=== PATIENT | female | born 1980 | race Caucasian/White ===

== ENCOUNTER 2021-04-18 22:55 | Emergency (ER) | payer SELFPAY ==
[2021-04-18 23:26] VITALS: BP 128/84; PULSE 81; RESP 18; TEMP 36.9; O2SAT 97; BMI 28.2
--- NOTE | 2021-04-18 23:37 | ED_ITS ---
HPI - Dental/Oral General: Chief complaint: Dental/Oral Stated complaint: Tooth Ache Time Seen by Provider: 04/18/21 23:37 History of Present Illness: HPI Narrative: Patient comes in today for complaints of lower right rear molar pain. Patient was given a dose of Toradol in the urgent care clinic today with some improvement. Patient reports tonight the pain got worse and she had nothing at home for her discomfort. Review of Systems General: Reports: 10 or more systems reviewed and unremarkable except in HPI and below ENMT: Reports: dental pain PFSH ED PFSH: Family History Father Cancer prostate Family/Other Cancer Diabetes Brother , age 46 Heart disease Social History Smoking and tobacco status: never smoked Second hand smoke exposure: Yes Alcohol intake: current Alcohol intake frequency: few times a month Lives independently: No Household members: family Housing: House Marital status: Current occupational status: employed Current occupation: [employer] History of recent travel: No Current gender identity: Female Female Reproductive History: Date of last menstrual period: 04/18/21 Physical Exam Const: COMMON NORMALS: no acute distress and patient oriented x3 GENERAL APPEARANCE: cooperative HENMT: COMMON NORMALS: normocephalic, TM's normal bilaterally and Normal external nose present HEAD & SCALP: normal to inspection and normocephalic NOSE: Normal external nose present TYMPANIC MEMBRANE: TM's normal bilaterally MOUTH: other (Teeth fair repair, redness and erythema lower right molar) THROAT: posterior oropharynx normal Eye: GENERAL EYE: appearance normal, both eyes and all related structures Neck/C-Spine: COMMON NORMALS: full ROM Lymph: LYMPHATIC: no lymphadenopathy noted Chest: COMMONS NORMALS: normal inspection of the chest Resp: COMMON NORMALS: normal respiratory effort EFFORT & INSPECTION: Yes able to speak in complete sentences Cardio: COMMON NORMALS: regular rate and regular rhythm RATE: regular rate RHYTHM: regular rhythm GI: COMMON NORMALS: non-tender Extremity: COMMON NORMALS: normal to inspection Neuro: COMMON NORMALS: patient oriented x3 and moves all extremities Psych: COMMON NORMALS: mental status grossly normal and cooperative Skin: COMMON NORMALS: no rashes or lesions noted GENERAL SKIN EXAM: no rashes or lesions noted Course Vital Signs: Vital signs: Vital Signs Temperature 98.5 F 04/18/21 23:26 Pulse Rate 81 04/18/21 23:26 Respiratory Rate 18 04/18/21 23:26 Blood Pressure 128/84 04/18/21 23:26 Pulse Oximetry 97 04/18/21 23:26 MDM - Dental/Oral MDM Narrative: Medical decision making narrative: Patient comes in today with dental pain. On exam patient has various caries in the teeth with some repair. To the tooth of concern lower right rear molar there is noticeable redness and swelling to the gingiva. Differential diagnosis includes dental caries, odontalgia, dental abscess, floor mouth cellulitis. No sign of serious illness was noted. No symmetry was noted in the throat. Patient was going to be treated with clindamycin and will continue her antibiotic as directed. Patient was given medication for her pain and recommended to follow-up with dentist for definitive care. Discharge Plan Discharge Patient Disposition: Home Clinical Impression: Dental abscess Condition: Stable Prescriptions: New hydrocodone-acetaminophen 5-325 mg tablet 1 tab PO Q6H PRN (Reason: pain (scale score 7-10)) Qty: 6 RF: 0 No Action albuterol sulfate [Ventolin HFA] 90 mcg/actuation HFA aerosol inhaler 2 puff INHALATION Q6H PRN (Reason: Shortness Of Breath) RF: 0 norgestimate-ethinyl estradiol [Tri-Sprintec (28)] 0.18/0.215/0.25 mg-35 mcg (28) tablet 1 tab PO DAILY RF: 0 ibuprofen 800 mg tablet 800 mg PO TID PRN (Reason: Pain) RF: 0 clindamycin HCl 300 mg capsule 300 mg PO TID 7 Days Qty: 21 RF: 0 scopolamine base 1 mg over 3 days patch 3 day 1 patch TRANSDERMA Q3D PRN (Reason: nausea and vomiting) Qty: 4 RF: 0 rizatriptan 10 mg tablet,disintegrating 10 mg PO PRN RF: 0 ondansetron 4 mg tablet,disintegrating 4 mg PO Q4H PRN (Reason: Nausea) RF: 0 Sudafed 2 tab PO PRN RF: 0 Discharge Orders: Discharge ED (Routine); Ordered 04/18/21 Ordered By: Escobar Mitchell Discharge Diet: Usual diet Discharge Activity: Increase activity as tolerated Patient Instructions: Toothache (ED), Opioid Safety Activity Restrictions/Additional Instructions: Take antibiotics as directed. Drink plenty of water with medication. Follow-up with dentist for definitive care. Return to the ER for new concerns. Coding Level of Care Code ED Food Preservation Scientist for Avelina Moreno
[2021-04-18] MEDS: ketorolac 30 mg/mL INJ IM (23:56)
[2021-04-18] MEDS: HYDROcodone-acetaminophen 5-325 mg Tablet 1 TAB PO (23:56)
[2021-04-18] MEDS: clindamycin 150 mg Capsule 300 MG PO (23:56)
== END 2021-04-19 | disposition home or self-care (01) ==
PROVIDERS: Emergency Provider Nurse Practitioner Family
DX: K04.7 Periapical abscess without sinus (principal); Z77.22 Contact with and (suspected) exposure to environmental tobacco smoke (acute) (chronic)
CPT/HCPCS: 96372; 99283; J1885

== ENCOUNTER 2022-07-01 10:38 | Observation (INO) | payer OTHER, SELFPAY ==
[2022-06-28 08:42] VITALS: BMI 31.3
--- NOTE | 2022-06-28 09:10 | ANES.PREANE2 ---
Pre-Anesthetic Assessment Height/Weight: Height 1.68 m Weight 87.997 kg Preop Diagnosis: Chronic pelvic pain, urinary incontinence, abnormal uterine bleeding Operation Date: 07/01/22 07:00 Proposed Procedures p Total vaginal hysterectomy 30002, Single incision cling 60573,N93.9,N39.3(Not Applicable) - Bao Bahena MD s Sling Single Incision Sling(Not Applicable) - Bao Bahena MD Familial anesthetic complications: none Social No alcohol and No tobacco Exam alert, oriented x 3, clear to auscultation bilaterally and regular rate & rhythm Airway Mallampati: Class I Dentition: full Pulmonary Asthma Neuropsych BPPV - resolved Anesthetic Plan ASA status: 2 Anesthesia: General Risk of > 500 ml blood loss (7ml/kg in children): No Medications/Allergies Home Medications Medication Instructions Recorded Confirmed Last Taken Type ibuprofen 800 mg tablet 800 mg PO TID PRN Pain 11/05/19 06/28/22 03/26/20 History Sudafed 2 tab PO PRN 04/01/20 06/28/22 Unknown History ondansetron 4 mg disintegrating 4 mg PO Q4H PRN Nausea #20 tabs 12/22/21 06/28/22 Unknown Rx tablet rizatriptan 10 mg disintegrating 10 mg PO Q2H PRN migraine headache 12/22/21 06/28/22 Unknown Rx tablet #10 tabs triamcinolone acetonide 0.1 % 1 applic topical DAILY #30 grams 12/22/21 06/28/22 Unknown Rx topical cream albuterol sulfate 90 mcg/actuation 2 puff inhalation Q6H PRN 04/26/22 06/28/22 Unknown Rx aerosol inhaler (Ventolin HFA) Shortness Of Breath #8.5 grams Allergies Allergy/AdvReac Type Severity Reaction Status Date / Time doxycycline Allergy Intermediate vomiting Verified 06/28/22 08:37 Sulfa (Sulfonamide Allergy Intermediate itching, Verified 06/28/22 08:37 Antibiotics) vomiting ceftriaxone [From Rocephin] Allergy ALGY-Anaphy Verified 06/28/22 08:37 laxis sumatriptan [From Imitrex] Allergy ALGY-Anaphy Verified 06/28/22 08:37 laxis [facility] Anesthesia Medical History Asthma Surgical History H/O shoulder surgery bone spurs taken off left shoulder History of ear, nose, and throat (ENT) surgery deviated septum Hx of appendectomy Hx of tubal ligation Family History Father No problems noted. 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
[2022-06-28 09:37] LABS: Basophils # 0.1 10^3/uL (0.0-0.1); Basophils % 0.8 %; Eosinophils # 0.1 10^3/uL (0.0-0.8); Eosinophils % 1.9 %; Hematocrit 38.3 % (37.0-47.0); Hemoglobin 12.1 g/dL (11.5-15.3); Lymphocytes # 1.4 10^3/uL (0.8-4.8); Lymphocytes % 21.8 %; Mean Corpuscular HGB Conc 31.6 g/dL (30.0-36.0); Mean Corpuscular Hemoglobin 27.3 pg (28.0-34.0); Mean Corpuscular Volume 86.3 fl (81-99); Mean Platelet Volume 11.3 fL (7.4-10.4); Monocytes # 0.4 10^3/uL (0.2-0.9); Monocytes % 5.8 %; Neutrophils # 4.29 10^3/uL (1.8-7.7); Neutrophils % 69.4 %; Nucleated Red Blood Cells % 0 %; Platelet Count 232 10^3/cmm (130-400); Red Blood Count 4.44 10^6/uL (4.1-5.3); Red Cell Distribution Width 13.3 % (12.1-15.1); White Blood Count 6.2 10^3/uL (4.0-10.0)
[2022-06-28 09:46] LABS: OR HCG Qualitative Urine Negative (Negative)
[2022-06-28 09:57] LABS: Alanine Aminotransferase 28 U/L (0-33); Alkaline Phosphatase 73 U/L (35-105); Anion Gap 13.8 (5-19); Aspartate Amino Transferase 22 U/L (0-32); Blood Urea Nitrogen 11 mg/dL (6-20); Calcium 8.6 mg/dL (8.5-10.5); Carbon Dioxide 24 mmol/L (22-29); Chloride 104 mmol/L (98-107); Globulin 2.8 g/dL (1.3-4.6); Glomerular Filtration Rate 91.3 mL/min (90-130); Glucose 101 mg/dL (65-115); Osmolality Calculated 286 mOsm/kg (285-295); Potassium 3.8 mmol/L (3.5-5.1); Sodium 138 mmol/L (136-145); Total Bilirubin 0.3 mg/dL (0.15-1.2); Total Protein 6.8 g/dL (6.6-8.7)
[2022-07-01] VITALS (21 sets, daily range): BP systolic 91–116; BP diastolic 52–91; PULSE 38–100; RESP 12–18; TEMP 36.3–36.8; O2SAT 96–100
[2022-07-01 06:20] LABS: OR HCG Qualitative Urine Negative (Negative)
[2022-07-01] MEDS: sodium chloride 0.9% 500 ML IV (06:29)
[2022-07-01] MEDS: scopolamine 1.5 Patch 1 PATCH TRANSDERMA (06:29)
[2022-07-01] MEDS: sodium chloride 0.9% 1,000 ML 30 ML IV (07:01)
--- NOTE | 2022-07-01 07:03 | P.ANESUD_ITS ---
Pre-Anesthetic Update Pre-Anesthetic Assessment: Date of Surgery/Procedure: 07/01/22 Preop Kelly gnosis: Chronic pelvic pain, urinary incontinence, abnormal uterine bleeding Proposed Procedure: Operation Date: 07/01/22 07:00 Proposed Procedures p Total vaginal hysterectomy 51993, Single incision cling 91494,N93.9,N39.3(Not Applicable) - Bao Bahena MD s Sling Single Incision Sling(Not Applicable) - Bao Bahena MD Any changes to Pre-Anesthetic Assessment?: No Last Intake: Intake Last Liquid Date 06/30/22 Last Liquid Time 18:45 Last Solid Date 06/30/22 Last Solid Time 18:45 Vitals: Temperature 97.4 F L 07/01/22 06:09 Temperature Source Temporal Artery S can 07/01/22 06:09 Pulse Rate 84 07/01/22 06:09 Respiratory Rate 18 07/01/22 06:09 Blood Pressure 113/71 07/01/22 06:09 Blood Pressure Florina n 85 07/01/22 06:09 Pulse Oximetry 98 07/01/22 06:09 Oxygen Delivery Me thod 07/01/22 06:09 Exam: Pre-Anes Outpt Exam: alert, oriented x 3, clear to auscultation bilaterally and regular rate & rhythm Cardiac Studies: Holter Monitor 12/23/21
[2022-07-01] MEDS: levofloxacin-dextrose 5 % 500 MG/100 ML PREMIX 100 MG IV (07:07)
[2022-07-01] MEDS: vancomycin 1,000 MG in sodium chloride 0.9% 250 ML 250 MG IV (08:10)
--- NOTE | 2022-07-01 08:34 | W.PM.OPSUD ---
Surgery/Procedure H&P Update DATE OF PROCEDURE: July 01, 2022 DATE H&P PERFORMED: 06/25/22 H&P UPDATE INFORMATION: I have reviewed H&P completed within last 30 days, I have examined patient prior to procedure and No changes to prior documentation PREOP DIAGNOSIS: Chronic pelvic pain, urinary incontinence, abnormal uterine bleeding PLANNED PROCEDURE: Operation Date: 07/01/22 07:00 Proposed Procedures p Total vaginal hysterectomy 32560, Single incision cling 72677,N93.9,N39.3(Not Applicable) - Bao Bahena MD s Sling Single Incision Sling(Not Applicable) - Bao Bahena MD
[2022-07-01] MEDS: acetaminophen 1,000 MG/100 ML PIGGYBACK 400 MG IV (09:22)
--- NOTE | 2022-07-01 09:38 | SUR.OPER ---
Family Notified Of Patient's Status Via Phone.
[2022-07-01] MEDS: estrogens Conjugated Cream 30 gm 1 APPLIC VAGINAL (10:08)
--- NOTE | 2022-07-01 10:16 | P.OP_ITS ---
Operative Report Date of procedure: July 01, 2022 Pre-op diagnosis: Preop Diagnosis Chronic pelvic pain, urinary incontinence, abnormal uterine bleeding Post-op diagnosis: Same as above Post-op findings: Enlarged uterus Procedure done: Total vaginal hysterectomy. Single incision mid urethral sling. Cystoscopy Implants: Coloplast Altis sling Specimens removed/disposition: Uterus Surgeon: Bao Bahena MD Estimated blood loss (mL): 400 IV fluids (mL): 1,200 Urine output (mL): 100 Procedure: After informed consent and risks, benefits, indications and alternatives reviewed with the patient was taken to the operating room. The patient was placed in dorsal lithotomy position prepped, and draped in the usual sterile fashion. The pre-procedure timeout verifying the correct patient, procedure, site and side, could not requirements was performed and acknowledge by the OR team. A Melendez catheter was placed. A Bookwalter vaginal retractor was placed into the vagina in usual manner visualize the cervix. Cervix was grasped with a single tooth tenaculum and circumferentially infiltrated with 2% lidocaine with epinephrine. Then cervix was circumferentially incised with bovie and the bladder was dissected off the pubovesical cervical fascia anteriorly with a sponge stick and Metzenbaum scissors. The anterior peritoneal reflection was identified and the anterior cul-de-sac was entered sharply with Metzenbaum scissors. The same procedure was performed posteriorly and a posterior colpotomy was made through the posterior cul-de-sac space without difficulty and the posterior blade of the Bookwalter vaginal retractor was advanced posteriorly into the cul-de-sac. At this time, the left and right uterosacral ligaments were isolated and ligated with 0 Vicryl. The Voyant device was placed over the uterosacral ligaments on either side and was then used in a serial fashion up through the cardinal ligaments bilaterally cross-clamped, cut, and sealed with the Voyant device. Finally, the uterine arteries were cross-clamped, cut, sealed and ligated with the Voyant device. Hemostasis was assured. The broad ligaments were then serially clamped, sealed and cut with the Voyant device on both sides. Excellent hemostasis was visualized. Both cornua were clamped, sealed and cut with the Voyant device. Then the pedicles were then suture ligated with excellent hemostasis. The uterus was excised and submitted for pathologic evaluation. No other abnormalities were noted in the pelvic cavity. The peritoneum was then closed in a pursestring fashion with 0 Vicryl suture. The vaginal cuff angles were closed with [id number] #0 Vicryl suture on both sides and transfixed with the ipsilateral cardinal and uterosacral ligaments. The remainder of the vaginal cuff was closed with #0 Vicryl in a running locked fashion. At this time, instruments were removed from the vagina at hemostasis assured. The anterior vaginal mucosa beneath the midurethra was infiltrated with 0.5% Marcaine with epinephrine. A vertical midline incision was made beneath the midurethra, nearly 1.5 cm length. Careful submucosal dissection was performed bilaterally up to the interior portion of the inferior pubic ramus. The insertio n of adductor longus tendon on the patient?s pubic ramus was identified as reference land cruz. Palpated the notch along the internal edge of ischiopubic ramus where the adductor longus tendon and the inferior pubic ramus meet. The Altis single incision sling (SIS) was selected. Then the needle of the SIS inserted aiming at the location of this notch. One of the integrated self- fixating tips place onto the needle by sliding it over the end of the needle. The needle/sling assembly was inserted toward the location of identified reference notch making sure that the flat of the handle is perpendicular to the desired path. The needle was tracked along the posterior surface of the ischiopubic ramus until the midline cruz on the mesh is approximately at the midline position under the urethra. The needle was removed and the same was repeated on the contralateral side until the appropriate sling tension under the urethra was achieved ensuring that the mesh lays flat. The needle was removed and vaginal incision was closed in a running interlocking fashion with 2-0 Vicryl. Then the Melendez catheter was removed and cystoscope was inserted. The bladder was filled with sterile water. Complete evaluation of the bladder mucosa was performed noting no lacerations, dimpling, tears, bleeding of the mucosa or muscular layers. Both ureteral orifices were identified. Prompt excretion of urine from both ureteral orifices was noted. Cystoscope was withdrawn. Melendez catheter was then placed yielding clear jacki urine. A vaginal packing with Premarin cream was placed and the patient was taken out of dorsal lithotomy position and awakened from the general anesthesia. The patient tolerated the procedure well and was taken to the PACU recovery room in a stable condition. Sponge, lap, needle and instruments counts were correct x3.
--- NOTE | 2022-07-01 10:34 | SUR.PHASEI ---
1024 PT TO PACU 5 PT SLEEPS WITH ORAL AIRWAY IN PLACE , DOES NOT AWAKE TO VOICE OR TOUCH, GOOD RESP NOTED SATS 100% ON 8LMASK, ABDOMEN SOFT WITH VAGINAL PACKING D/I NO VAGINAL BLEEDING NOTED IV TO LT AC PATENT TO NS 800ML UP AT KVO RATE PER GRAVITY, BILAT SCDS ON AND WORKING, COLLAZO TO DD WITH LT CLEAR BLUE URINE NOTED TO TUBING AND BAG, PT MONITOR SR WITH NO ECTOPY, VSS ID BRACELET TO RT WRIST PT ID'D WITH 2 IDENTIFIERS, PT HAS SCOPOLAMINE PATCH TO RT EAR.
--- NOTE | 2022-07-01 10:35 | P.PCN_ITS ---
PACU note Narrative: VSS, Good respiratory effort, report to PURCHASING CONTRACTING CLERK Exam: awake
--- NOTE | 2022-07-01 10:35 | PM.PACU ---
PACU note Narrative: VSS, Good respiratory effort, report to WIND TURBINE PERFORMANCE ENGINEER Exam: awake
--- NOTE | 2022-07-01 10:39 | SUR.PHASEI ---
PT AWAKES , ORAL AIRWAY OUT PT VERBALLY DENIES PAIN AND NAUSEA, VSS DR FOUNTAIN AT BEDSIDE, GOOD RESP EFFORT NOTED WITH NO DISTRESS.
[2022-07-01] MEDS: fentaNYL 50 mcg/mL INJ 2mL IVP (10:50)
--- NOTE | 2022-07-01 10:55 | SUR.PHASEI ---
1045 PT ON RA TRIAL, PT MORE AWAKE, GRIMICING, C/O OF PRESSURE PAIN TO POLO AREA GROIN AT 8/10 SEE PAIN MED GIVEN
--- NOTE | 2022-07-01 11:01 | SUR.PHASEI ---
PT AWAKES EASILY STATES THAT PAIN IS GONE, ABDOMEN REMAINS SOFT AND NO VAGINAL BLEEDING NOTED. WILL CALL REPORT TO OB.
--- NOTE | 2022-07-01 11:09 | SUR.PHASEI ---
PT NOW OUT OF PHASE ONE, UNABLE TO GIVE REPORT AT THIS TIME TO FLOOR NURSE, WILL HOLD PT, PT HAS NO FAMILY IN WAITING AREA, ATTEMPTED TO CALL DAUGHTER JOHNNY, NO ANSWER, UNABLE TO LEAVE MESSAGE.
--- NOTE | 2022-07-01 11:38 | SUR.PHASEI ---
PT TO OB 9 PT AWAKE ALERT , MOVES SELF TO BED, HANDOFF AT BEDSIDE TO MEGHANA RN , PT ABDOMEN SOFT NO VAGINAL BLEEDING NOTED.
[2022-07-01] MEDS: HYDROcodone-acetaminophen 5-325 mg Tablet PO ×2 (12:00→18:18)
--- NOTE | 2022-07-01 13:59 | ANE.PACU2 ---
Inpatient post-anesthesia follow up: Airway intact: Yes Vital signs: Temperature 97.5 F Pulse Rate 65 Respiratory Rate 16 Blood Pressure 102/58 Pulse Oximetry 99 Oxygen Delivery Me thod Room Air Oxygen Flow Rate 8 Fraction of Inspir ed Oxygen Hydration adequate: Yes Nausea and vomiting: No Pain level: 1 Mental status: Baseline
[2022-07-01] MEDS: ketorolac 30 mg/mL INJ IVP ×2 (15:46→21:38)
[2022-07-01] MEDS: ipratropium-albuterol 3 mL Neb INHALATION ×2 (15:58→19:37)
[2022-07-01] MEDS: dextrose 5%-lactated ringers 1,000 ML 125 ML IV (16:38)
[2022-07-01] MEDS: docusate sodium 100 mg Capsule PO (18:18)
[2022-07-02] MEDS: HYDROcodone-acetaminophen 5-325 mg Tablet PO ×2 (00:03→06:09)
[2022-07-02] MEDS: dextrose 5%-lactated ringers 1,000 ML 125 ML IV (00:56)
[2022-07-02 05:00] VITALS: BP 102/66; PULSE 88; RESP 16; O2SAT 97
[2022-07-02 05:44] LABS: Hematocrit 27.6 % (37.0-47.0); Hemoglobin 8.8 g/dL (11.5-15.3); Mean Corpuscular HGB Conc 31.9 g/dL (30.0-36.0); Mean Corpuscular Hemoglobin 27.9 pg (28.0-34.0); Mean Corpuscular Volume 87.6 fl (81-99); Mean Platelet Volume 10.9 fL (7.4-10.4); Platelet Count 198 10^3/cmm (130-400); Red Blood Count 3.15 10^6/uL (4.1-5.3); Red Cell Distribution Width 13.5 % (12.1-15.1); White Blood Count 10.1 10^3/uL (4.0-10.0)
[2022-07-02] MEDS: ketorolac 30 mg/mL INJ IVP (06:09)
--- NOTE | 2022-07-02 07:02 | PC.NURSE ---
Patient voided 300 mL, post void bladder scan revealed 30 mL
--- NOTE | 2022-07-02 09:56 | PC.NURSE ---
PVR patient voided 300ml bladder scan revealed approximately 96ml remaining in bladder
[2022-07-02 11:00] VITALS: BP 82/48; PULSE 87; RESP 15; TEMP 36.9
[2022-07-02] MEDS: ibuprofen 800 mg tablet PO (12:30)
--- NOTE | 2022-07-02 14:25 | PM.OBGYDC ---
Discharge Providers DOCUMENTATION COORDINATOR Date of Admission: 07/01/22 10:38 Date of Discharge: 07/02/22 Attending Provider at Admission: Bao Bahena MD Attending Provider at Discharge: Bao Bahena MD Primary DOCUMENTATION COORDINATOR: Bao Bahena MD Primary Care Provider: Goldy Rivera DO Hospital Course Hospital Course Mrs. Juarez 42-year-old female with a history of abnormal uterine bleeding unresponsive to medical management and stress Incontinence was admitted for planned total vaginal hysterectomy and single incision mid urethral sling. The procedures were performed without complication. Overnight observation was uneventful. She is afebrile and hemodynamically stable postoperative day 1. Tolerating diet well. Ambulating without difficulty. PVR within normal limits. She was counseled regarding pelvic rest for 6 weeks (no sex, no tampons, no vaginal douches). Return to the emergency room if any fever, increased bleeding or pain. Physical Exam Narrative: GA: Alert and oriented ?3. HEENT: WNL. Heart: Regular rate and rhythm. Lungs: Clear to auscultation bilaterally. Abdomen: Bowel sounds present, nontender. [place]: Spotting bleeding. Extremities: No edema, no cyanosis, no calves pain. History History History 4 Term 3 0 Miscarriages/Ectopic 1 Living Children 3 Discharge Data Studies Completed and Pending Pending at discharge Category Date Time Status Pathology: Surgical [PTH] Routine Pth 07/01/22 10:27 Received Laboratory Results WBC 10.1 10^3/uL (4.0-10.0) H 07/02/22 05:30 RBC 3.15 10^6/uL (4.1-5.3) L 07/02/22 05:30 Hgb 8.8 g/dL (11.5-15.3) L 07/02/22 05:30 Hct 27.6 % (37.0-47.0) L 07/02/22 05:30 MCV 87.6 fl (81-99) 07/02/22 05:30 MCH 27.9 pg (28.0-34.0) L 07/02/22 05:30 MCHC 31.9 g/dL (30.0-36.0) 07/02/22 05:30 RDW 13.5 % (12.1-15.1) 07/02/22 05:30 Plt Count 198 10^3/cmm (130-400) 07/02/22 05:30 MPV 10.9 fL (7.4-10.4) H 07/02/22 05:30 Neut % (Auto) 69.4 % 06/28/22 08:55 Lymph % (Auto) 21.8 % 06/28/22 08:55 [place] % (Auto) 5.8 % 06/28/22 08:55 Eos % (Auto) 1.9 % 06/28/22 08:55 Baso % (Auto) 0.8 % 06/28/22 08:55 Neut # (Auto) 4.29 10^3/uL (1.8-7.7) 06/28/22 08:55 Lymph # (Auto) 1.4 10^3/uL (0.8-4.8) 06/28/22 08:55 [place] # (Auto) 0.4 10^3/uL (0.2-0.9) 06/28/22 08:55 Eos # (Auto) 0.1 10^3/uL (0.0-0.8) 06/28/22 08:55 Baso # (Auto) 0.1 10^3/uL (0.0-0.1) 06/28/22 08:55 Nucleated RBC % (auto) 0 % 06/28/22 08:55 Nucleated RBCs # 0.0 /100WBC 06/28/22 08:55 Sodium 138 mmol/L (136-145) 06/28/22 08:55 Potassium 3.8 mmol/L (3.5-5.1) 06/28/22 08:55 Chloride 104 mmol/L (98-107) 06/28/22 08:55 Carbon Dioxide 24 mmol/L (22-29) 06/28/22 08:55 Anion Gap 13.8 (5-19) 06/28/22 08:55 BUN 11 mg/dL (6-20) 06/28/22 08:55 Creatinine 0.7 mg/dL (0.5-0.9) 06/28/22 08:55 GFR Calculation 91.3 mL/min (90-130) 06/28/22 08:55 Glucose 101 mg/dL (65-115) 06/28/22 08:55 Calculated Osmolality 286 mOsm/kg (285-295) 06/28/22 08:55 Calcium 8.6 mg/dL (8.5-10.5) 06/28/22 08:55 Total Bilirubin 0.3 mg/dL (0.15-1.2) 06/28/22 08:55 AST 22 U/L (0-32) 06/28/22 08:55 ALT 28 U/L (0-33) 06/28/22 08:55 Alkaline Phosphatase 73 U/L (35-105) 06/28/22 08:55 Total Protein 6.8 g/dL (6.6-8.7) 06/28/22 08:55 Albumin 4.0 g/dL (3.5-5.2) 06/28/22 08:55 Globulin 2.8 g/dL (1.3-4.6) 06/28/22 08:55 Urine HCG, Qual Negative (Negative) 07/01/22 06:18 Blood Type A Negative 07/01/22 06:21 Rho(D) Type Negative 07/01/22 06:21 Antibody Screen Negative 07/01/22 06:21 Vitals Last Vital Signs Temp 98.5 F 07/02/22 11:00 Pulse 87 07/02/22 11:00 Resp 15 07/02/22 11:00 BP 82/48 07/02/22 11:00 Pulse Ox 97 07/02/22 05:00 O2 Del Method 07/02/22 05:00 O2 Flow Rate 8 07/01/22 10:40 Discharge Plan Discharge Patient Disposition: Home Condition: Stable Prescriptions: New hydrocodone-acetaminophen 5-325 mg tablet 1 tab PO Q4H PRN (Reason: pain) Qty: 20 0RF ferrous sulfate [Iron (ferrous sulfate)] 325 mg (65 mg iron) tablet 325 mg PO BID Qty: 60 0RF ibuprofen 800 mg tablet 800 mg PO TID PRN (Reason: pain) Qty: 60 0RF acetaminophen 325 mg capsule 325 mg PO Q4H PRN (Reason: Postoperative pain) Qty: 60 0RF docusate sodium [Colace] 100 mg capsule 100 mg PO BID Qty: 60 0RF Continued ibuprofen 800 mg tablet 800 mg PO TID PRN (Reason: Pain) triamcinolone acetonide 0.1 % cream 1 applic topical DAILY Qty: 30 1RF ondansetron 4 mg tablet,disintegrating 4 mg PO Q4H PRN (Reason: Nausea) Qty: 20 1RF rizatriptan 10 mg tablet,disintegrating 10 mg PO Q2H PRN (Reason: migraine headache) Qty: 10 2RF Rx Instructions: Do not exceed 30mg in a 24 hour period. albuterol sulfate [Ventolin HFA] 90 mcg/actuation HFA aerosol inhaler 2 puff INHALATION Q6H PRN (Reason: Shortness Of Breath) Qty: 8.5 2RF Sudafed 2 tab PO PRN Discharge Orders: Discharge Order (Routine); Ordered 07/02/22 Ordered By: Bao Bahena Discharge Diet: Advance as tolerated and Soft Mechanical Discharge Activity: Limit activity as instructed Patient Instructions: Opioid Safety, Vaginal Hysterectomy (GEN), Bladder Sling for Women (GEN) Activity Restrictions/Additional Instructions: 1. Please call [facility] on next working day to make your post-operative appointment in 2 weeks. 2. Please stay home until you come back to the clinic on first post-operative check up. 3. Please follow instructions on your medications CAREFULLY. 4. If you have abdominal incision, do not cover it unless dressing is necessary because of drainage. OK to shower, but avoid bath. Leave steri-strips until they fall off. If they are still on one week after surgery, you may remove them. 5. If you had vaginal surgery or vaginal repair, Dr. Bahena may instruct you to take SITZ bath. 6. Yellow, blood tinged odorous vaginal discharge is usually normal after hysterectomy or vaginal surgeries. 7. No sexual intercourse, tampons, or douches until you are completely released from the post-operative care. 8. Avoid constipation by eating right and maybe using some Metamucil or Milk of Magnesia. 9. All prescription refills are given during the working hours. Please do no wait till it runs out. Call the clinic at [phone] before your medication runs out. The clinic will get in touch with your doctor to prescribe medications if necessary. 10. Please remain within 40 mile radius from our hospital because emergencies do happen now and then during the post-operative period. 11. If you have stairs at home, take one step at a time slowly and minimize the number of trips. It helps to stay in one floor for the next few days. No lifting except what you can lift by one hand until you are released from the post-operative care. 12. Driving is discouraged until you are well healed. It may be 3-4 weeks before you feel strong enough to drive. You should be able to turn and look through the rear window without pain and you should be able to push the brake pedal very hard without pain before you drive. No fast rules, but SAFETY should be your primary concern. DO NOT drive if you are on sedating medications such as narcotics. 13. Call the clinic (during working hours) to make urgent appointment or go to the Emergency room, if any of the following occurs: i. Vaginal bleeding becomes heavy, more than a period. ii. Incision becomes red and sore, or drains pus. iii. Your temperature is over 100.4 or you have chill. iv. IV site becomes red and swollen (a little ``knot?? is usually OK) v. Persistent nausea and vomiting vi. Persistent constipation or diarrhea vii. Rash or allergic reaction to medications. Discharge Attestations DOCUMENTATION COORDINATOR Time Spent in Discharge Care*: greater than 30 min Coding Level of Care Code Acute Metalizing Machine Operator Automatic for Avelina Moreno
[2022-07-02 20:06] VITALS: BP 82/48; PULSE 87; RESP 15; TEMP 36.9
== END 2022-07-02 14:50 | disposition home or self-care (01) ==
LOC: OBGYN 10:42
PROVIDERS: Anesthesiology; Admitting Provider Obstetrics & Gynecology; PCP Family Medicine; Visit Provider Obstetrics & Gynecology
PROC: (CPT 57288; principal; 2022-07-01 07:00)
PROC: (CPT 57288; 2022-07-01 07:00)
DX: N93.9 Abnormal uterine and vaginal bleeding, unspecified (principal); R10.2 Pelvic and perineal pain; G89.29 Other chronic pain; R32 Unspecified urinary incontinence
CPT/HCPCS: 57288; 58260; 36415; 80053; 81025; 84703; 85025; 85027; 86850; 86900; 87086; 88307; 94640; 94664; C1713; G0378; J1100; J1885; J1956; J2405; J2704; J3010; J3370; J3490; J7030; J7040; J7050; Q9968

== ENCOUNTER 2023-04-09 11:12 | Emergency (ER) | payer OTHER, SELFPAY ==
[2023-04-09 11:22] VITALS: BP 113/61; PULSE 89; RESP 15; TEMP 36.7; O2SAT 97; BMI 30.7
--- NOTE | 2023-04-09 11:31 | ED_ITS ---
HPI - Headache General: Chief Complaint: Headache Stated Complaint: head pain Time Seen by Provider: 04/09/23 11:31 History of Present Illness: 42-year-old female with a history of migraine headaches and asthma presents emergency room with headache since last night. Described the headache as throbbing sensation mostly on the left side of her face severity of 8 out of 10. Headache is similar to previous migraine headaches in the past in terms of location and intensity. Headache is not the worst headache of her life. No head injury or recent fall. Patient revealed some nausea but no vomiting denies any fever, neck pain, chest pain, sick contacts or recent foreign travel. Associated symptoms: Deny chest pain, confusion, lightheadedness or syncope Review of Systems General: Reports: 10 or more systems reviewed and unremarkable except in HPI and below Card: Denies: chest pain, palpitations, irregular heart rhythm, swelling of feet/ankles, lightheadedness or syncope Neuro: Reports: headache(s) and sensory changes; Denies: numbness in extremities, weakness in extremities, lack of coordination, frequent falls, dizziness, vertigo, confusion, behavioral changes, Slurred speech present, difficulty communicating thoughts, seizure-like activity, involuntary movements or restless legs PFSH ED PFSH: Medical History Asthma No pertinent past medical history neghx: htn,dm,thyroid,dvt/pe PCP: Dr. Rivera Stress incontinence in female Surgical History H/O shoulder surgery bone spurs taken off left shoulder H/O total vaginal hysterectomy (~07/01/22) Total vaginal hysterectomy, Single incision mid urethral sling preformed by 07/01/[address] Bahena at [facility] History of ear, nose, and throat (ENT) surgery deviated septum Hx of appendectomy Hx of tubal ligation Family History Father No problems noted. 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 Const: COMMON NORMALS: no acute distress, average body habitus, patient oriented x3, no limitations, healthy appearing, alert and well nourished Eye: COMMON NORMALS: Equal, round and reactive pupils present, EOMs intact bilaterally, conjunctivae normal, no scleral icterus, no papilledema, normal visual gray by confrontation and fundi normal bilaterally CONJUNCTIVA: Yes conjunctivae normal PUPIL: Yes Equal, round and reactive pupils present DIRECT OPHTHALMOSCOPY: Yes no papilledema and Yes fundi normal bilaterally Neck/C-Spine: COMMON NORMALS: full ROM, no lymphadenopathy, supple, no meningeal signs, no JVD, Thyroid normal and No carotid bruits GENERAL: No anterior neck swelling, No lymphadenopathy, No tender, No torticollis, No tracheal deviation, No tracheostomy present and No submandibular swelling THYROID: Thyroid normal Resp: COMMON NORMALS: normal respiratory effort, No retractions, No use of accessory muscles, clear to auscultation bilaterally and percussion normal AUSCULTATION: clear to auscultation bilaterally PERCUSSION: percussion normal Cardio: COMMON NORMALS: no JVD GI: COMMON NORMALS: Normal to inspection, nondistended, normoactive bowel sounds present, Soft to palpation, non-tender, No hepatosplenomegaly present, no masses and no bruits PALPATION: Yes Soft to palpation and Yes No hepatosplenomegaly present Extremity: COMMON NORMALS: normal to inspection, full ROM, capillary refill normal, no joint enlargement, no clubbing, cyanosis or edema, no calf tenderness and no pedal edema Neuro: MARGRET COMA SCALE: document GCS findings Benedict coma scale eye opening: Spontaneous Benedict coma scale verbal response: Orientated Benedict coma scale motor response: Obey commands Benedict coma scale total score: 15 COMMON NORMALS: patient oriented x3 SENSORIUM/ORIENTATION: Yes alert MENINGEAL SIGNS: Yes no meningeal signs Course Reevaluation(s): Reevaluation #1: At 2:22 PM patient reexamined and reveals complete resolution of her symptoms at this time. Patient was on phone without any nausea vomiting no distress. Vital Signs: Vital signs: Vital Signs Temperature 98.0 F 04/09/23 11:22 Pulse Rate 70 04/09/23 13:50 Respiratory Rate 15 04/09/23 11:22 Blood Pressure 121/91 04/09/23 13:50 Pulse Oximetry 100 04/09/23 13:50 Oxygen Delivery Me thod Room Air 04/09/23 11:22 MDM - Headache Medical Decision Making Patient made comfortable emergency room patient was given multiple medications including Toradol, Compazine, morphine, and IV fluid. The scan was done to rule out any bleed. Because of all labs and CAT scan finding with the patient. On reassessment patient improved with current treatment. Differential Diagnosis Likely migraine, tension headache, subarachnoid hemorrhage, headache, meningitis, sinusitis and postconcussion syndrome Lab Data Radiology Impressions Head CT 04/09/23 12:52 IMPRESSION: No acute intracranial abnormality. Discharge Plan Discharge Patient Disposition: Home Clinical Impression: Migraine Condition: Stable Prescriptions: New Fioricet 50-300-40 mg capsule 1 cap PO Q8H PRN (Reason: pain) Qty: 20 0RF promethazine 25 mg tablet 25 mg PO Q6H PRN (Reason: nausea and vomiting) Qty: 20 0RF No Action triamcinolone acetonide 0.1 % cream 1 applic topical DAILY Qty: 30 1RF fluticasone furoate-vilanterol [Breo Ellipta] 100-25 mcg/dose blister with device 1 inh inhalation Q24H Qty: 60 5RF ondansetron 4 mg tablet,disintegrating 4 mg PO Q4H PRN (Reason: Nausea) Qty: 20 3RF bupropion HCl 300 mg tablet extended release 24 hr 300 mg PO QAM Qty: 30 5RF rizatriptan 10 mg tablet,disintegrating See Rx Instructions .ROUTE .COMPLEX Qty: 10 2RF Dose Instruction: DISSOLVE ONE TABLET BY MOUTH EVERY 2 HOURS NEEDED FOR migraine HEADACHE; DO not exceed THREE tabs in A 24 hours period Rx Instructions: DISSOLVE ONE TABLET BY MOUTH EVERY 2 HOURS NEEDED FOR migraine HEADACHE; DO not exceed THREE tabs in A 24 hours period Sudafed 2 tab PO Q6H PRN (Reason: Sinus Symptoms) ibuprofen 800 mg tablet 800 mg PO TID PRN (Reason: pain) Qty: 60 0RF ferrous sulfate [Iron (ferrous sulfate)] 325 mg (65 mg iron) tablet 325 mg PO BID Qty: 60 0RF Colace 100 mg capsule 100 mg PO BID albuterol sulfate 90 mcg/actuation HFA aerosol inhaler 2 puff inhalation Q6H PRN (Reason: Shortness Of Breath Or Wheezing) biotin 5 mg Tablet 5 mg PO DAILY Discharge Orders: Discharge ED (Routine); Ordered 04/09/23 Ordered By: Chino Ford Referrals: Goldy Rivera DO [Primary Care Provider] - Discharge Diet: Advance as tolerated Discharge Activity: Resume usual activity Patient Instructions: Opioid Safety, Pain Management Coding Level of Care Code ED [place] Gatherer for Avelina Moreno
[2023-04-09] MEDS: diphenhydrAMINE 50 mg/mL SDV 1mL IVP (12:30)
[2023-04-09] MEDS: ketorolac 30 mg/mL INJ IVP (12:31)
[2023-04-09] MEDS: sodium chloride 0.9% 1,000 ML 999 ML IV (12:31)
[2023-04-09 12:40] VITALS: BP 113/73; PULSE 90; O2SAT 100
--- NOTE | 2023-04-09 12:52 | CTR_ITS ---
PROCEDURE INFORMATION: Exam: CT Head Without Contrast Exam date and time: 04/09/2023 1:15 PM Age: 42 years old Clinical indication: Pain; Headache; Migraine; Additional info: Headache ) TECHNIQUE: Imaging protocol: Computed tomography of the head without contrast. Radiation optimization: All CT scans at this facility use at least one of these dose optimization techniques: automated exposure control; mA and/or kV adjustment per patient size (includes targeted exams where dose is matched to clinical indication); or iterative reconstruction. REPORTING DATA: Count of CT and Cardiac NM exams in prior 12 months: This patient has received 0 known CTs and 0 known cardiac nuclear medicine studies in the 12 months prior to the current study. COMPARISON: 1. CT head wo con* [id number] 04/01/2020 12:[address] angio headneck* [id number] 04/01/2020 2:53 PM RADIATION DOSE METRICS: Total DLP (mGy-cm): 1065.28 FINDINGS: Brain: Normal. No hemorrhage. Unremarkable white matter. No mass effect. Cerebral ventricles: No ventriculomegaly. Paranasal sinuses: Visualized sinuses are unremarkable. No fluid levels. Mastoid air cells: Visualized mastoid air cells are well aerated. Bones/joints: Unremarkable. No acute fracture. Soft tissues: Unremarkable. CT/CT head wo con* [id number] IMPRESSION: No acute intracranial abnormality.
[2023-04-09 13:50] VITALS: BP 121/91; PULSE 70; O2SAT 100
[2023-04-09 14:27] VITALS: BP 106/57; PULSE 84; O2SAT 100
== END 2023-04-09 14:27 | disposition home or self-care (01) ==
PROVIDERS: Emergency Provider Family Medicine; PCP Family Medicine
DX: G43.909 Migraine, unspecified, not intractable, without status migrainosus (principal)
CPT/HCPCS: 70450; 96374; 96375; 99284; J1200; J1885; J7030

== ENCOUNTER → 2023-04-19 09:55 | Outpatient (BNVA) | payer OTHER, SELFPAY | PROVIDERS: PCP Family Medicine; Visit Provider Family Medicine | DX: D50.9 Iron deficiency anemia, unspecified (principal); K59.00 Constipation, unspecified; J45.40 Moderate persistent asthma, uncomplicated | CPT/HCPCS: 80053; 80061; 85027 ==

== ENCOUNTER 2023-06-21 17:04 | Emergency (ER) | payer OTHER, SELFPAY ==
[2023-06-21 17:11] VITALS: BP 130/83; PULSE 85; RESP 18; TEMP 36.9; O2SAT 97; BMI 30.7
--- NOTE | 2023-06-21 17:33 | W.ED.ALLEREA ---
HPI - Allergic Reaction General: Chief complaint: Allergic Reaction Stated complaint: possible allergic reaction Time Seen by Provider: 06/21/23 17:28 History of Present Illness: HPI narrative: 43-year-old female presents emergency department with complaints of feeling like she has a scratchy throat and tingling to her face after being prescribed Keflex for an insect bite by her primary care provider today. She states she is deathly allergic to Rocephin which she has taken in the past with anaphylactic reaction results. She states today she started taking her Keflex and then became concerned as she started feeling like she was having itching all over and a scratchy irritated throat. She states she also was noticing some intermittent wheezing at which time she took Benadryl 25 mg at home by mouth with improvement of her wheezing and redness. Review of Systems General: Reports: 10 or more systems reviewed and unremarkable except in HPI and below Resp: Reports: wheezing Skin/Breast: Reports: rash, pruritus and erythema PFSH ED PFSH: Medical History Asthma No pertinent past medical history neghx: htn,dm,thyroid,dvt/pe PCP: Dr. Rivera Stress incontinence in female Surgical History H/O shoulder surgery bone spurs taken off left shoulder H/O total vaginal hysterectomy (~07/01/22) Total vaginal hysterectomy, Single incision mid urethral sling preformed by 07/01/[address] [facility]hena at [facility] History of ear, nose, and throat (ENT) surgery deviated septum Hx of appendectomy Hx of tubal ligation Family History Father No problems noted. 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 Exam Const: COMMON NORMALS: no acute distress, average body habitus, patient oriented x3 and no limitations HENMT: COMMON NORMALS: normocephalic, atraumatic, EAC's normal, Normal external nose present, Normal nasal mucous membranes and turbinates present, moist oral mucous membranes and oropharynx normal HEAD & SCALP: normocephalic and atraumatic NOSE: Normal external nose present and Normal nasal mucous membranes and turbinates present EXTERNAL AUDITORY CANAL: EAC's normal Eye: COMMON NORMALS: Equal, round and reactive pupils present, EOMs intact bilaterally, conjunctivae normal and no scleral icterus CONJUNCTIVA: Yes conjunctivae normal PUPIL: Yes Equal, round and reactive pupils present Neck/C-Spine: COMMON NORMALS: full ROM, no lymphadenopathy, supple and no meningeal signs Chest: COMMONS NORMALS: normal inspection of the chest and normal palpation of entire chest wall Resp: COMMON NORMALS: normal respiratory effort, No retractions, No use of accessory muscles and clear to auscultation bilaterally AUSCULTATION: clear to auscultation bilaterally Cardio: COMMON NORMALS: regular rate, regular rhythm, S1 normal heart sound present, S2 normal heart sound present and No gallops present (Cardio) RATE: regular rate RHYTHM: regular rhythm HEART SOUNDS: S1 normal heart sound present and S2 normal heart sound present GI: COMMON NORMALS: Normal to inspection, nondistended, normoactive bowel sounds present, Soft to palpation, non-tender and No hepatosplenomegaly present PALPATION: Yes Soft to palpation and Yes No hepatosplenomegaly present Back/Pelvis: COMMON NORMALS: thoracic and lumbar spine normal to inspection, no thoracic nor lumbar tenderness and thoraco-lumbar ROM normal Extremity: COMMON NORMALS: normal to inspection, full ROM and capillary refill normal Neuro: COMMON NORMALS: patient oriented x3, moves all extremities and no sensory deficits noted MENINGEAL SIGNS: Yes no meningeal signs Psych: COMMON NORMALS: mental status grossly normal, Normal thought process present and cooperative THOUGHT PROCESS: Normal thought process present Skin: LESIONS: lesion noted (right lower leg insect bite with erythma) Course Vital Signs: Vital signs: Vital Signs Temperature 98.5 F 06/21/23 17:11 Pulse Rate 85 06/21/23 17:11 Respiratory Rate 18 06/21/23 17:11 Blood Pressure 130/83 06/21/23 17:11 Pulse Oximetry 97 06/21/23 17:11 Oxygen Delivery Me thod Room Air 06/21/23 17:11 MDM - Allergic Reaction Medical Decision Making Physical exam completed and documented 43-year-old female presents emergency department after taking Keflex for an insect bite to her right lower leg prescribed by a medical provider. Patient states she started having an itchy throat and hives she is extremely allergic to Rocephin she did take Benadryl prior to come to the emergency department we will provide her histamine blockers and IV access and reevaluate. After reevaluating the patient she states she feels much better her itchy throat and wheezing have completely resolved. I will prescribe her Augmentin as she states she has taken Augmentin in the past without difficulties for her insect bite and right lower leg cellulitis. I advised her that she can follow-up with her primary care provider and discuss her recent antibiotic use. Differential Diagnosis Likely anaphylaxis, allergic reaction and urticaria No radiology studies performed this visit Discharge Plan Discharge Patient Disposition: Home Clinical Impression: Allergic reaction caused by a drug, Cellulitis of right lower leg Condition: Stable Prescriptions: New amoxicillin-pot clavulanate 875-125 mg tablet 1 tab PO BID Qty: 10 0RF hydroxyzine HCl 25 mg tablet 25 mg PO Q8H Qty: 20 0RF prednisone 20 mg tablet 20 mg PO DAILY Qty: 5 0RF Discontinued cephalexin 500 mg capsule 500 mg PO TID 10 Days Qty: 30 0RF No Action triamcinolone acetonide 0.1 % cream 1 applic topical DAILY Qty: 30 1RF ondansetron 4 mg tablet,disintegrating 4 mg PO Q4H PRN (Reason: Nausea) Qty: 20 3RF fluticasone furoate-vilanterol [Breo Ellipta] 200-25 mcg/dose blister with device 1 inh inhalation DAILY Qty: 60 2RF rizatriptan 10 mg tablet,disintegrating See Rx Instructions .ROUTE .COMPLEX Qty: 10 2RF Dose Instruction: DISSOLVE ONE TABLET BY MOUTH EVERY 2 HOURS NEEDED FOR migraine HEADACHE; DO not exceed THREE tabs in A 24 hours period Rx Instructions: DISSOLVE ONE TABLET BY MOUTH EVERY 2 HOURS NEEDED FOR migraine HEADACHE; DO not exceed THREE tabs in A 24 hours period bupropion HCl 300 mg tablet extended release 24 hr See Rx Instructions .ROUTE .COMPLEX Qty: 30 5RF Dose Instruction: TAKE ONE TABLET BY MOUTH IN THE MORNING Rx Instructions: TAKE ONE TABLET BY MOUTH IN THE MORNING Sudafed 2 tab PO Q6H PRN (Reason: Sinus Symptoms) ibuprofen 800 mg tablet 800 mg PO TID PRN (Reason: pain) Qty: 60 0RF ferrous sulfate [Iron (ferrous sulfate)] 325 mg (65 mg iron) tablet 325 mg PO BID Qty: 60 0RF Colace 100 mg capsule 100 mg PO BID albuterol sulfate 90 mcg/actuation HFA aerosol inhaler 2 puff inhalation Q6H PRN (Reason: Shortness Of Breath Or Wheezing) biotin 5 mg Tablet 5 mg PO DAILY Fioricet 50-300-40 mg capsule 1 cap PO Q8H PRN (Reason: pain) Qty: 20 0RF promethazine 25 mg tablet 25 mg PO Q6H PRN (Reason: nausea and vomiting) Qty: 20 0RF Discharge Orders: Discharge ED (Routine); Ordered 06/21/23 Ordered By: Tulio Fowler Referrals: Goldy Rivera DO [Primary Care Provider] - Discharge Diet: Advance as tolerated Discharge Activity: Resume usual activity Patient Instructions: Opioid Safety, Pain Management Coding Level of Care Code ED Manufacturing Manager for Avelina Moreno
[2023-06-21] MEDS: cetirizine 10 mg Tablet PO (17:40)
[2023-06-21] MEDS: metoclopramide 5 mg/mL SDV 2 mL 10 MG IVP (17:42)
[2023-06-21] MEDS: methylPREDNISolone sod succ 60 MG in water for injection-sterile 0.96 ML 11.52 MG IVP (17:43)
== END 2023-06-21 18:38 | disposition home or self-care (01) ==
PROVIDERS: Emergency Provider Internal Medicine; PCP Family Medicine
DX: T78.40XA Allergy, unspecified, initial encounter (principal); T36.1X5A Adverse effect of cephalosporins and other beta-lactam antibiotics, initial encounter; L03.115 Cellulitis of right lower limb; X58.XXXA Exposure to other specified factors, initial encounter
CPT/HCPCS: 96374; 96375; 99284; J2765; J2930

== ENCOUNTER → 2023-12-19 12:14 | Outpatient (BNVA) | payer OTHER, SELFPAY | PROVIDERS: PCP Family Medicine; Visit Provider Nurse Practitioner | DX: M25.512 Pain in left shoulder (principal) | CPT/HCPCS: 73030 ==

== ENCOUNTER → 2024-01-20 14:46 | Outpatient (BNVA) | payer OTHER, SELFPAY | PROVIDERS: PCP Family Medicine; Visit Provider Student in an Organized Health Care Education/Training Program | DX: S46.912A Strain of unspecified muscle, fascia and tendon at shoulder and upper arm level, left arm, initial encounter (principal); M25.812 Other specified joint disorders, left shoulder; M25.512 Pain in left shoulder; M75.42 Impingement syndrome of left shoulder; M19.019 Primary osteoarthritis, unspecified shoulder; X58.XXXA Exposure to other specified factors, initial encounter | CPT/HCPCS: 73030 ==

== ENCOUNTER 2024-03-15 13:35 | Outpatient (CLI) | payer OTHER, SELFPAY ==
--- NOTE | 2024-03-15 13:45 | MR_ITS ---
WS: [id number] MRI LEFT SHOULDER HISTORY: left shoulder pain, impingement syndrome COMPARISON: Radiographs 01/20/2024 TECHNIQUE: Multiplanar sequences of the shoulder joint are submitted. Mild AC joint hypertrophy and arthropathy. Very slight encroachment upon the myotendinous portion of the supraspinatus. Very small amount of fluid in the subacromial and subdeltoid bursa. No subacromial impingement. Normal position of the biceps tendon. There is increased T2 signal within the biceps te ndon into the bicipital groove from a split tear. No atrophy. Additional micrometallic artifacts are noted surrounding the humeral head from prior surgery. No rotator cuff muscle atrophy or edema. No tear. Minimal tendinopathy in the distal supraspinatus te ndon. No labral tear identified. There is mild increased signal in the superior anterior labrum but n o tear is appreciated. MR/MR shoulder LT wo con* [id number] IMPRESSION: 1. Mild AC joint arthritis with mild encroachment upon the myotendinous portio n of the supraspinatus. 2. No rotator cuff tear, muscle atrophy or edema. 3. Small amount of fluid in the subacromial and subdeltoid bursa. 4. Split tear biceps tendon in the bicipital groove. 5. Mild heterogeneous signal within the superior and anterior labrum but no te ar.
== END 2024-03-15 13:36 | disposition home or self-care (01) ==
LOC: RAD 13:35
PROVIDERS: PCP Nurse Practitioner; Visit Provider Student in an Organized Health Care Education/Training Program
DX: M25.812 Other specified joint disorders, left shoulder (principal); M12.812 Other specific arthropathies, not elsewhere classified, left shoulder; S46.212A Strain of muscle, fascia and tendon of other parts of biceps, left arm, initial encounter; X58.XXXA Exposure to other specified factors, initial encounter
CPT/HCPCS: 73221

== ENCOUNTER 2024-05-06 12:00 | Emergency (ER) | payer OTHER, SELFPAY ==
--- NOTE | 2024-05-06 12:02 | ECG_ITS ---
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 Measurements Intervals [place] Rate: 115 P: 43 KS: 128 QRS: 24 QRSD: 78 T: 31 QT: 319 QTc: 442 Interpretive Statements SINUS TACHYCARDIA LOW QRS VOLTAGE IN PRECORDIAL LEADS [QRS DEFLECTION < 1.0 mV IN CHEST LEADS] POSSIBLE RIGHT VENTRICULAR CONDUCTION DELAY [RSR (QR) IN V1/V2] Compared to ECG 12/17/2021 07:44:20 Low QRS voltage now present Sinus rhythm no longer present Electronically Signed On 05-06-2024 20:07:46 CDT by Deonte Martinez M.D. [email or web address] Machinemerit health river oaksHigh Tower Softwarebarney children's [facility] center.[employer]/store/[id number]
--- NOTE | 2024-05-06 12:02 | XRR_ITS ---
PROCEDURE INFORMATION: Exam: XR Chest Exam date and time: 05/06/2024 12:22 PM Age: 43 years old Clinical indication: Chest pressure; Patient HX: Sudden onset chest pain that radiates between shoulder blades TECHNIQUE: Imaging protocol: Radiologic exam of the chest. Views: 1 view. COMPARISON: MR nickerson LT wo con* [id number] 03/15/2024 1:56 PM FINDINGS: Lungs: Unremarkable. No consolidation. Pleural spaces: Unremarkable. No pleural effusion. No pneumothorax. Heart/Mediastinum: Unremarkable. No cardiomegaly. Bones/joints: Unremarkable. XR/XR chest 1V portable [id number] IMPRESSION: No acute findings.
[2024-05-06 12:05] VITALS: BP 122/75; PULSE 98; RESP 18; TEMP 36.8; O2SAT 98; BMI 31.9
[2024-05-06 12:34] LABS: Basophils # 0.1 10^3/uL (0.0-0.1); Basophils % 0.5 %; Eosinophils # 0.1 10^3/uL (0.0-0.8); Eosinophils % 0.5 %; Lymphocytes # 1.7 10^3/uL (0.8-4.8); Lymphocytes % 16.4 %; Mean Corpuscular HGB Conc 31.9 g/dL (30-55); Mean Corpuscular Hemoglobin 28.7 pg (27-33); Mean Corpuscular Volume 90.1 fl (85-98); Mean Platelet Volume 10.3 fL (7.4-10.4); Monocytes # 0.6 10^3/uL (0.2-0.9); Monocytes % 5.4 %; Neutrophils # 8.03 10^3/uL (1.8-7.7); Neutrophils % 76.8 %; Nucleated Red Blood Cells % 0 %; Platelet Count 267 10^3/cmm (157-399); Red Blood Count 4.77 10^6/uL (3.85-5.65); Red Cell Distribution Width 13.1 % (12.1-15.1); White Blood Count 10.44 10^3/uL (3.29-11.43)
[2024-05-06 12:54] LABS: Alanine Aminotransferase 28 U/L (0-33); Albumin Level 4.5 g/dL (3.5-5.2); Alkaline Phosphatase 102 U/L (35-105); Anion Gap 16.1 (5-19); Aspartate Amino Transferase 16 U/L (0-32); Blood Urea Nitrogen 16 mg/dL (6-20); Calcium 9.5 mg/dL (8.5-10.5); Carbon Dioxide 25 mmol/L (22-29); Chloride 103 mmol/L (98-107); Creatinine Clr Calc Pharmacy 135.0639; Globulin 2.8 g/dL (1.3-4.6); Glomerular Filtration Rate 108.6 mL/min (90-130); Glucose 122 mg/dL (65-115); Lipase 41 U/L (13-60); Osmolality Calculated 292 mOsm/kg (285-295); Potassium 4.1 mmol/L (3.5-5.1); Sodium 140 mmol/L (136-145); Total Bilirubin 0.3 mg/dL (0.15-1.2); Total Protein 7.3 g/dL (6.6-8.7)
[2024-05-06 12:55] LABS: Troponin(5th) Baseline < 6 ng/L (0-10)
--- NOTE | 2024-05-06 14:02 | ECG_ITS ---
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 Measurements Intervals [place] Rate: 88 P: 44 IN: 161 QRS: 21 QRSD: 82 T: 29 QT: 354 QTc: 429 Interpretive Statements SINUS RHYTHM LOW QRS VOLTAGE IN PRECORDIAL LEADS [QRS DEFLECTION < 1.0 mV IN CHEST LEADS] POSSIBLE RIGHT VENTRICULAR CONDUCTION DELAY [RSR (QR) IN V1/V2] Compared to ECG 05/06/2024 11:59:09 Sinus tachycardia no longer present Electronically Signed On 05-06-2024 20:10:37 CDT by Deonte Martinez M.D. [email or web address] Networkswest campus of delta regional medical centerHilosoftgeorgetown behavioral hospital.[email or web address]/store/[id number]
--- NOTE | 2024-05-06 14:19 | ED_ITS ---
HPI - Chest Pain 2 General: Chief Complaint: Chest Pain Stated Complaint: CP Time Seen by Provider: 05/06/24 13:38 History of Present Illness: 43-year-old female comes in today with c hest discomfort. Patient reports midsternal chest discomfort that goes through to her back. Patient has a brother that had a heart attack at 44. Patient is concerned that it may be her heart. Patient denies any falls or injury. Patient does have a history of indigestion and heartburn. Patient does continue to have her gallbladder. Patient appears nontoxic. Patient appears in mild to no pain. Patient takes bupropion for depression. Patient uses Abreva inhaler for her asthma. Patient does occasionally take a muscle relaxer and tramadol for her left shoulder pain due to rotator cuff injury. Patient reports no history of drug use or abuse. Related Data Previous Rx's Medication Instructions Recorded bupropion HCl 300 mg 24 hr tablet, See Rx Instructions .Route 06/21/23 extended release .COMPLEX #30 tabs ibuprofen 800 mg tablet 800 mg PO TID PRN pain #60 tabs 10/04/23 pimecrolimus 1 % topical cream 1 applic topical BID #100 grams 12/19/23 (Elidel) fluticasone furoate 200 See Rx Instructions .Route 01/05/24 mcg-vilanterol 25 mcg/dose .COMPLEX #60 ea inhalation powder (Breo Ellipta) nowbhqdzhf-ewpvsikullsaf-zvpwvvue 1 cap PO Q8H PRN migraines #20 caps 03/20/24 50 mg-300 mg-40 mg capsule (Fioricet) cyclobenzaprine 10 mg tablet 10 mg PO TID PRN muscle spasm #30 04/13/24 tabs tramadol 50 mg tablet 50 mg PO BID PRN pain 5 days #30 04/13/24 tabs promethazine 50 mg tablet See Rx Instructions .Route 04/28/24 .COMPLEX #30 tabs pantoprazole 20 mg tablet,delayed 20 mg PO DAILY 4 weeks #30 tabs 05/06/24 release Allergies Allergy/AdvReac Type Severity Reaction Status Date / Time doxycycline Allergy Intermediate vomiting Verified 05/06/24 12:05 Sulfa (Sulfonamide Allergy Intermediate itching, Verified 05/06/24 12:05 Antibiotics) vomiting ceftriaxone [From Rocephin] Allergy ALGY-Anaphy Verified 05/06/24 12:05 laxis sumatriptan [From Imitrex] Allergy ALGY-Anaphy Verified 05/06/24 12:05 laxis cephalexin Allergy unknown Uncoded 05/06/24 12:05 Review of Systems 2 General: Reports: 10 or more systems reviewed and unremarkable except in HPI and below Card: Reports: chest pain PFSH ED 2 PFSH: Medical History No pertinent past medical history neghx: htn,dm,thyroid,dvt/pe PCP: Dr. Rivera Stress incontinence in female Asthma Surgical History H/O total vaginal hysterectomy (~07/01/22) Total vaginal hysterectomy, Single incision mid urethral sling preformed by 07/01/[address] Bahena at [facility] History of ear, nose, and throat (ENT) surgery deviated septum H/O shoulder surgery bone spurs taken off left shoulder Hx of appendectomy Hx of tubal ligation Family History Father No problems noted. 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 2 Const: COMMON NORMALS: alert HENMT: COMMON NORMALS: normocephalic HEAD & SCALP: normocephalic THROAT: posterior oropharynx normal Neck/C-Spine: COMMON NORMALS: full ROM Chest: COMMONS NORMALS: normal palpation of entire chest wall Resp: COMMON NORMALS: normal respiratory effort and clear to auscultation bilaterally AUSCULTATION: clear to auscultation bilaterally Cardio: COMMON NORMALS: regular rate and regular rhythm RATE: regular rate RHYTHM: regular rhythm GI: COMMON NORMALS: Soft to palpation AUSCULTATION: Yes normoactive bowel sounds PALPATION: Yes Soft to palpation and Yes Tenderness to palpation present (GI) Details: RUQ : COMMON NORMALS: Yes no CVA tenderness BLADDER/KIDNEY EXAM: Yes no CVA tenderness Back/Pelvis: COMMON NORMALS: no CVA tenderness and thoracic and lumbar spine normal to inspection Extremity: COMMON NORMALS: normal to inspection and no pedal edema Neuro: SENSORIUM/ORIENTATION: Yes alert Psych: COMMON NORMALS: normal affect Skin: COMMON NORMALS: turgor normal GENERAL SKIN EXAM: turgor normal Course 2 Vital Signs: Vital signs: Vital Signs Temperature 98.2 F 05/06/24 12:05 Pulse Rate 98 05/06/24 12:05 Respiratory Rate 18 05/06/24 12:05 Blood Pressure 122/75 05/06/24 12:05 Pulse Oximetry 98 05/06/24 12:05 MDM - Chest Pain Medical Decision Making 43-year-old female comes in today for complaints of chest discomfort that radiates to her back. Patient appears nontoxic. Patient appears in mild to no pain. Abdomen soft with some mild right upper quadrant tenderness. Vital signs are normal. EKG shows a sinus rhythm. Chest x-ray shows no acute findings. Differential diagnosis includes but not limited to gallbladder disease, gastritis, GERD, unlikely ACS, unlikely PE, anxiety. Patient reported some improvement after GI cocktail. CBC and CMP were unremarkable. Ultrasound the gallbladder was unremarkable. 2-hour troponin was less than 6 without any change in the delta. Chest x-ray was unremarkable. EKG showed no significant abnormalities. Suspect the patient most likely has some reflux disease of the gastric system. Patient was given 20 mg of pantoprazole for further treatment of GERD. Patient was given 40 mg IV in the ER. Patient was discharged home and needs to follow-up with primary care for further instructions. Lab Data 05/06/24 12:22 05/06/24 12:22 Radiology Impressions Chest X-Ray 05/06/24 12:02 IMPRESSION: No acute findings. Laboratory Results WBC 10.44 10^3/uL (3.29-11.43) 05/06/24 12:22 RBC 4.77 10^6/uL (3.85-5.65) 05/06/24 12:22 Hgb 13.70 g/dL (11.27-16.99) 05/06/24 12:22 Hct 43.0 % (36-47) 05/06/24 12:22 MCV 90.1 fl (85-98) 05/06/24 12:22 MCH 28.7 pg (27-33) 05/06/24 12:22 MCHC 31.9 g/dL (30-55) 05/06/24 12:22 RDW 13.1 % (12.1-15.1) 05/06/24 12:22 Plt Count 267 10^3/cmm (157-399) 05/06/24 12:22 MPV 10.3 fL (7.4-10.4) 05/06/24 12:22 Neut % (Auto) 76.8 % 05/06/24 12:22 Lymph % (Auto) 16.4 % 05/06/24 12:22 [place] % (Auto) 5.4 % 05/06/24 12:22 Eos % (Auto) 0.5 % 05/06/24 12: Baso % (Auto) 0.5 % 05/06/24 12: Neut # (Auto) 8.03 10^3/uL (1.8-7.7) H 05/06/24 12:22 Lymph # (Auto) 1.7 10^3/uL (0.8-4.8) 05/06/24 12:22 [place] # (Auto) 0.6 10^3/uL (0.2-0.9) 05/06/24 12:22 Eos # (Auto) 0.1 10^3/uL (0.0-0.8) 05/06/24 12:22 Baso # (Auto) 0.1 10^3/uL (0.0-0.1) 05/06/24 12:22 Nucleated RBC % (auto) 0 % 05/06/24 12:22 Nucleated RBCs # 0.0 /100WBC 05/06/24 12:22 Sodium 140 mmol/L (136-145) 05/06/24 12:22 Potassium 4.1 mmol/L (3.5-5.1) 05/06/24 12:22 Chloride 103 mmol/L (98-107) 05/06/24 12:22 Carbon Dioxide 25 mmol/L (22-29) 05/06/24 12:22 Anion Gap 16.1 (5-19) 05/06/24 12:22 BUN 16 mg/dL (6-20) 05/06/24 12:22 Creatinine 0.6 mg/dL (0.5-0.9) 05/06/24 12:22 GFR Calculation 108.6 mL/min (90-130) 05/06/24 12:22 Glucose 122 mg/dL (65-115) H 05/06/24 12:22 Calculated Osmolality 292 mOsm/kg (285-295) 05/06/24 12:22 Calcium 9.5 mg/dL (8.5-10.5) 05/06/24 12:22 Total Bilirubin 0.3 mg/dL (0.15-1.2) 05/06/24 12:22 AST 16 U/L (0-32) 05/06/24 12:22 ALT 28 U/L (0-33) 05/06/24 12:22 Alkaline Phosphatase 102 U/L (35-105) 05/06/24 12:22 Troponin T Baseline < 6 ng/L (0-10) 05/06/24 12:22 Troponin T 120 Minute 6.00 ng/L (0-10) 05/06/24 14:31 Delta Troponin T 0.57435 ABS# (0-10) 05/06/24 14:31 Total Protein 7.3 g/dL (6.6-8.7) 05/06/24 12:22 Albumin 4.5 g/dL (3.5-5.2) 05/06/24 12:22 Globulin 2.8 g/dL (1.3-4.6) 05/06/24 12:22 Lipase 41 U/L (13-60) 05/06/24 12:22 XR interpretation done by ED provider, pending radiology final review EKG Data EKG 1: I personally reviewed and interpreted this EKG as follows: EKG interpretation date: 05/06/24 EKG interpretation time: 15:01 Prior EKG tracings: not available for review Interpretation: EKG done at 1457, today's date, shows sinus rhythm with a regular rate at [address] elevation or ectopy is noted. Mild artifact is present. No prior exam was available for comparison. Computer generated interpretation: Sinus rhythm, low QRS voltage in precordial leads, possible right ventricular conduction delay, borderline EKG, unconfirmed report. Discharge Plan Discharge Patient Disposition: Home Clinical Impression: Chest pain Qualifiers: Chest pain type: unspecified Qualified Code(s): R07.9 - Chest pain, unspecified Gastroesophageal reflux Qualifiers: Esophagitis presence: esophagitis presence not specified Qualified Code(s): K 21.9 - Gastro-esophageal reflux disease without esophagitis Condition: Stable Prescriptions: New pantoprazole 20 mg tablet,delayed release (DR/EC) 20 mg PO DAILY 28 Days Qty: 30 0RF No Action pimecrolimus [Elidel] 1 % cream 1 applic topical BID Qty: 100 4RF bupropion HCl 300 mg tablet extended release 24 hr See Rx Instructions .ROUTE .COMPLEX Qty: 30 5RF Dose Instruction: TAKE ONE TABLET BY MOUTH IN THE MORNING Rx Instructions: TAKE ONE TABLET BY MOUTH IN THE MORNING ibuprofen 800 mg tablet 800 mg PO TID PRN (Reason: pain) Qty: 60 0RF fluticasone furoate-vilanterol [Breo Ellipta] 200-25 mcg/dose blister with device See Rx Instructions .ROUTE .COMPLEX Qty: 60 6RF Dose Instruction: USE ONE inhalation daily Rx Instructions: USE ONE inhalation daily yyyafiqddj-hysoalumdcfvp-mvyx [Fioricet] 50-300-40 mg capsule 1 cap PO Q8H PRN (Reason: migraines) Qty: 20 1RF cyclobenzaprine 10 mg tablet 10 mg PO TID PRN (Reason: muscle spasm) Qty: 30 0RF tramadol 50 mg tablet 50 mg PO BID PRN (Reason: pain) 5 Days Qty: 30 0RF promethazine 50 mg tablet See Rx Instructions .ROUTE .COMPLEX Qty: 30 0RF Dose Instruction: TAKE ONE TABLET BY MOUTH THREE TIMES DAILY as needed for migraines Rx Instructions: TAKE ONE TABLET BY MOUTH THREE TIMES DAILY as needed for migraines Discharge Orders: Discharge ED (Routine); Ordered 05/06/24 Ordered By: Escobar Mitchell Referrals: Santa Bello FNP [Primary Care Provider] - Discharge Diet: Usual diet Discharge Activity: Increase activity as tolerated Patient Instructions: GERD (Gastroesophageal Reflux Disease) (ED) Activity Restrictions/Additional Instructions: Take medication as directed. Avoid carbonated beverages, really acidic foods, or really spicy foods until pain completely resolves. Follow-up with primary care for further evaluation. Return to ED for new concerns. Thank you for choosing [facility] for your healthcare needs today. Please realize this is an emergency room and that we are providing you with a medical screening exam and this may not be complete and all inclusive of all the testing and or work up that you may need to determine your ailment or severity of your illness. You have been screened and evaluated and felt safe for discharge. Health conditions do change or evolve sometimes and as such it is important that you follow up with your Primary Doctor to be re checked, 3-5 days is a general good time frame for follow up. 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
--- NOTE | 2024-05-06 14:25 | USR_ITS ---
PROCEDURE INFORMATION: Exam: US Abdomen, Limited; Right Upper Quadrant Exam date and time: 05/06/2024 3:10 PM Age: 43 years old Clinical indication: Other: Chest pain; Additional info: Chest pain radiating to back TECHNIQUE: Imaging protocol: Real time ultrasound of the abdomen with image documentation. Limited exam focused on the right upper quadrant. COMPARISON: US pelv w/transvag [id number] 12/10/2021 11:32 AM FINDINGS: Liver: Normal. No masses. Gallbladder: Normal. No gallstones. There is no gallbladder wall thickening. Biliary ducts: The common bile duct measures 3 mm within normal limits. Pancreas: Visualized pancreas is unremarkable. Right kidney: Right kidney measures 10 cm in length. No mass. No hydronephrosis. US/US gall bladder [id number] IMPRESSION: No acute findings.
[2024-05-06] MEDS: lidocaine 2% viscous 15 ML, aluminum-mag hydrox-simethicon 30 ML, sucralfate oral liq 1 GM PO (14:47)
[2024-05-06 14:55] LABS: Troponin 5 2HR Delta 0.00001 ABS# (0-10)
== END 2024-05-06 16:26 | disposition home or self-care (01) ==
PROVIDERS: Emergency Medicine; Emergency Provider Nurse Practitioner Family; PCP Nurse Practitioner
DX: R07.9 Chest pain, unspecified (principal); K21.9 Gastro-esophageal reflux disease without esophagitis
CPT/HCPCS: 36415; 71045; 76705; 80053; 83690; 84484; 85025; 93005; 99285

== ENCOUNTER → 2024-05-17 08:45 | Outpatient (BNVA) | payer OTHER, SELFPAY | PROVIDERS: PCP Nurse Practitioner; Referring Provider Nurse Practitioner; Visit Provider Nurse Practitioner | DX: R63.5 Abnormal weight gain (principal) | CPT/HCPCS: 82672; 83001; 83002; 84144; 84436; 84443; 84481 ==